=== PATIENT | female | born 1950 | race Caucasian/White ===

== ENCOUNTER → 2021-09-24 10:40 | Outpatient (CLI) | payer BC, SELFPAY ==
--- NOTE | ~2021-09-24 | CT_ITS ---
EXAMINATION: CT diagnostic chest w con DATE: 09/24/2021 11:08 INDICATION: Lung nodule TECHNIQUE: Transaxial computed tomographic images of the chest were obtained after the administration of 75 cc of Omnipaque 300 intravenous contrast. The dose-length product (DLP) was 174.05 mGy-cm. Ite rative reconstruction was used. COMPARISON: None FINDINGS: There is a 4 mm nodule in the left lower lobe on image 89. The lungs are free of acute opac ities. No pleural effusion or pneumothorax. No pathologically enlarged thoracic lymph nodes are ident ified. The heart size is normal. There is mild thoracic spondylosis. There is a 2.1 cm cyst of the le ft hepatic lobe. IMPRESSION: 1. 4 mm nodule of the left lower lobe. It is unclear if this represents the nodule in question for fo llow-up. Comparison with outside hospital imaging would be helpful. If unavailable and the patient ibrahim s no risk factors for malignancy, no further follow up is required. If there are risk factors for ma lignancy (i.e., history of smoking, asbestos or radiation exposure), consider followup CT in 12 month s. Reviewed, dictated and finalized at location A. IMPRESSION: 1. 4 mm nodule of the left lower lobe. It is unclear if this represents the nod ule in question for follow-up. Comparison with outside hospital imaging would b e helpful. If unavailable and the patient has no risk factors for malignancy, n o further follow up is required. If there are risk factors for malignancy (i.e ., history of smoking, asbestos or radiation exposure), consider followup CT in 12 months.
[2021-09-24 10:58] LABS: Estimated Glomerular Filt Rate > 60
== END ==
PROVIDERS: PCP Internal Medicine; Visit Provider Physician Assistant Medical
DX: R91.1 Solitary pulmonary nodule (principal)
CPT/HCPCS: 71260; Q9967